=== PATIENT | male | born 1980 | race Caucasian/White ===

== ENCOUNTER 2017-05-11 11:50 | Emergency (ER) | payer MEDICAID, SELFPAY ==
[2017-05-11 11:50] VITALS: BP 159/92; PULSE 76; RESP 14; TEMP 36.7; O2SAT 97; BMI 43.0
--- NOTE | 2017-05-11 12:12 | ED.DCSUM_ITS ---
- ER Visit Summary Date of Service: 05/11/17 Chief Complaint: Dental pain History of Present Illness: The patient is a 36 M who does not have a primary care physician or dentist. He reports that he has pain in his left mandibular first premolar that began 2-3 weeks ago. His sharp pain is 9 out of 10 at worst and 6 of 10 currently. Is worsened by eating. Is taken Tylenol and ibuprofen with significant relief. He has facial swelling that began today. He denies any constitutional symptoms. No fever, chills, nausea, or vomiting. Physical Examination: Vitals: Stable. Afebrile. Mouth: No trismus. No edema of the floor of the mouth. The left maxillary first premolar is eroded to the gumline. There is no focal abscess. He does have soft tissue swelling to the left maxillary region of his face. General: A&O x 3. NAD. Cardiovascular exam: Regular rate and rhythm, no murmur, rub or gallop. Respiratory exam: Clear to auscultation bilaterally. No wheezes or stridor. Abdominal exam: Soft, nontender, nondistended, normal bowel sounds. No peritoneal signs. Extremity: No clubbing, cyanosis, or edema. Emergency Department Course and Treatment: An OAR[facility] report was obtained and was negative. He was treated with naproxen and penicillin p.o. Treatment Plan: Patient will be discharged instructions to follow-up with the dentist as soon as possible. Return to the emergency department for any worsening symptoms. Disposition: To home in improved and stable condition. Impression: 1. Dental abscess. This note was generated with siOPTICA dictation software. It may contain incorrect words, spelling, and punctuation that were not noted in review of the chart prior to signing ED Disposition - Plan for ED Patient: Disposition: Home or Assisted Living Chief Complaint: Dental Instructions: Dental Abscess Prescriptions: Naproxen [Naprosyn] 500 mg PO BID PRN #20 tablet Penicillin V Potassium 500 mg PO 4X/DAY #40 tablet Referrals: Dentist,Your [STAFF PHYSICIAN] - As soon as possible
[2017-05-11] MEDS: Naproxen 250 MG Tablet 500 MG PO (12:37)
[2017-05-11] MEDS: Penicillin Vk 250 MG Tablet 500 MG PO (12:38)
== END 2017-05-11 12:38 | disposition home or self-care (01) ==
LOC: ED 12:24
PROVIDERS: Emergency Provider Emergency Medicine
DX: K04.7 Periapical abscess without sinus (principal); F17.200 Nicotine dependence, unspecified, uncomplicated
CPT/HCPCS: 99283

== ENCOUNTER 2017-09-14 08:50 | Emergency (ER) | payer OTHER, MEDICAID, SELFPAY ==
[2017-09-14 08:52] VITALS: BP 167/85; PULSE 69; RESP 16; TEMP 36.5; O2SAT 97; BMI 43.3
--- NOTE | 2017-09-14 09:03 | ED.VISSUMM ---
- ER Visit Summary Date of Service: 09/14/17 Chief Complaint: Dental pain History of Present Illness: The patient is a 36 M with right-sided dental and gum pain for the past 1 week. He scheduled to see a dentist in 2 weeks. He states he had some leftover penicillin at home he has been taking. He is taken 6 tabs without any improvement. Physical Examination: Vital signs significant for blood pressure 167/85, otherwise unremarkable. Head and neck examination reveals no facial edema or erythema. Intraoral exam reveals right maxillary first premolar to be tender to palpation with some mild surrounding gum edema. There is no trismus and uvula is midline. He is speaking in full sentences and has a strong voice. TMs are clear bilaterally. Heart is regular rate and rhythm without murmur. Test Results: [] Emergency Department Course and Treatment: Patient was switched to clindamycin and given a prescription for naproxen. He is to follow-up with his dentist in 2 weeks. Treatment Plan: [] Disposition: Discharge Impression: Odontalgia This note was generated with iProcure dictation software. It may contain incorrect words, spelling, and punctuation that were not noted in review of the chart prior to signing ED Disposition - Plan for ED Patient: Chief Complaint: Dental Referrals: Care Physician,No Primary [Primary Care Provider] -
--- NOTE | 2017-09-14 09:10 | ED.DEP ---
ED Disposition - Plan for ED Patient: Disposition: Home or Assisted Living Chief Complaint: Dental Instructions: ED Tooth Pain Prescriptions: Naproxen [Naprosyn] 500 mg PO BID PRN #20 tablet Clindamycin [Cleocin] 300 mg PO 4X/DAY #80 capsule
== END 2017-09-14 09:24 | disposition home or self-care (01) ==
LOC: ED 09:20
PROVIDERS: Emergency Provider Emergency Medicine
DX: K08.89 Other specified disorders of teeth and supporting structures (principal); Z72.0 Tobacco use
CPT/HCPCS: 99282

== ENCOUNTER 2017-10-02 10:49 | Emergency (ER) | payer OTHER, MEDICAID, SELFPAY ==
[2017-10-02 10:50] VITALS: BP 133/80; PULSE 72; RESP 16; TEMP 37; O2SAT 98; BMI 42.5
--- NOTE | 2017-10-02 11:07 | ED.DCSUM_ITS ---
- ER Visit Summary Date of Service: 10/02/17 Chief Complaint: Dental pain History of Present Illness: The patient is a 36 M presents to the emergency department dental pain. Patient's been having symptoms for the past week. He states that he has been having them off and on for the past few months. He was actually seen here at the beginning of the month and placed on clindamycin. He states that his pain resolved, but his follow-up appointment was rescheduled until January due to insurance reasons. He states since being off the antibiotics, the pain is come back. He describes a dull ache in his lower jaw. He denies any fevers or chills. He denies any trouble speaking or swallowing. He has been taking Tylenol with little relief. Physical Examination: Exam is relatively unremarkable. There is mild tenderness to palpation over tooth 30. There is no focal abscess. Submental space is soft. No trismus or stridor. No Kenneth angina. Neck is supple. Test Results: [] Emergency Department Course and Treatment: The patient has no evidence of Kenneth angina. His recurrent dental pain after finishing antibiotics. I do feel that he likely has recurrent periapical abscess. There is no evidence of dangerous process. The patient will be resumed on his antibiotics. He will be given new outpatient dental resources. He will be discharged home. Treatment Plan: [] Disposition: Discharge Impression: Dental pain This note was generated with EMKinetics dictation software. It may contain incorrect words, spelling, and punctuation that were not noted in review of the chart prior to signing ED Disposition - Plan for ED Patient: Chief Complaint: Dental Instructions: ED Tooth Pain Prescriptions: Naproxen [Naprosyn] 500 mg PO BID PRN #20 tab Clindamycin [Cleocin] 300 mg PO 4X/DAY #80 cap Referrals: Care Physician,No Primary [Primary Care Provider] -
[2017-10-02 11:30] VITALS: PULSE 98; RESP 16; O2SAT 98
== END 2017-10-02 11:50 | disposition home or self-care (01) ==
LOC: ED 11:22
PROVIDERS: Emergency Provider Emergency Medicine
DX: K04.7 Periapical abscess without sinus (principal); K08.89 Other specified disorders of teeth and supporting structures; Z72.0 Tobacco use
CPT/HCPCS: 99282; A4216

== ENCOUNTER 2018-01-09 00:03 | Emergency (ER) | payer OTHER, SELFPAY ==
[2018-01-09 00:06] VITALS: BP 163/88; PULSE 72; RESP 18; TEMP 36.6; O2SAT 97; BMI 44.4
--- NOTE | 2018-01-09 01:01 | ED.DEP ---
ED Disposition - Plan for ED Patient: Chief Complaint: Ear Problem Instructions: ED Otitis Media Acute Adult Prescriptions: Naproxen [Naprosyn] 500 mg PO BID PRN #20 tablet Amoxicillin 500 mg PO TID #30 tablet Referrals: Deepak Marc MD [STAFF PHYSICIAN] -
--- NOTE | 2018-01-09 01:03 | ED.VISSUMM ---
- ER Visit Summary Date of Service: 01/09/18 Chief Complaint: Left ear pain History of Present Illness: The patient is a 37 M presenting with left ear pain. Patient states it started yesterday. He denies trauma. He has not taken any medications at home. Denies fever. Denies sore throat, rhinorrhea, or other complaints. Physical Examination: Vitals are stable. Patient is afebrile. Alert no acute distress. HEENT exam right TM normal, left TM erythema and dullness. Pharynx is normal. No mastoid tenderness. Neck is supple. No meningismus. Lungs are clear and equal bilaterally. Heart is regular rate and rhythm. Extremities are unremarkable. Skin is warm and dry. No rash Remainder of exam is unremarkable. Emergency Department Course and Treatment: Patient is given amoxicillin, Naprosyn. He is advised to follow-up with Dr. Marc concrete pipe maker for no doc. Advised return to ED if worsening complaints. Disposition: Discharge home Impression: Left otitis media This note was generated with Evalve dictation software. It may contain incorrect words, spelling, and punctuation that were not noted in review of the chart prior to signing ED Disposition - Plan for ED Patient: Chief Complaint: Ear Problem Instructions: ED Otitis Media Acute Adult Prescriptions: Naproxen [Naprosyn] 500 mg PO BID PRN #20 tablet Amoxicillin 500 mg PO TID #30 tablet Referrals: Deepak Marc MD [STAFF PHYSICIAN] -
--- NOTE | 2018-01-09 01:07 | ED.DCSUM_ITS ---
- ER Visit Summary Date of Service: 01/09/18 Chief Complaint: Left ear pain History of Present Illness: The patient is a 37 M presenting with left ear pain. Patient states it started yesterday. He denies trauma. He has not taken any medications at home. Denies fever. Denies sore throat, rhinorrhea, or other complaints. Physical Examination: Vitals are stable. Patient is afebrile. Alert no acute distress. HEENT exam right TM normal, left TM erythema and dullness. Pharynx is normal. No mastoid tenderness. Neck is supple. No meningismus. Lungs are clear and equal bilaterally. Heart is regular rate and rhythm. Extremities are unremarkable. Skin is warm and dry. No rash Remainder of exam is unremarkable. Emergency Department Course and Treatment: Patient is given amoxicillin, Naprosyn. He is advised to follow-up with Dr. Marc marketing production coordinator for no doc. Advised return to ED if worsening complaints. Disposition: Discharge home Impression: Left otitis media This note was generated with Odysii dictation software. It may contain incorrect words, spelling, and punctuation that were not noted in review of the chart prior to signing ED Disposition - Plan for ED Patient: Chief Complaint: Ear Problem Instructions: ED Otitis Media Acute Adult Prescriptions: Naproxen [Naprosyn] 500 mg PO BID PRN #20 tablet Amoxicillin 500 mg PO TID #30 tablet Referrals: Deepak Marc MD [STAFF PHYSICIAN] -
[2018-01-09] MEDS: Naproxen 500 MG Tablet PO (01:30)
[2018-01-09] MEDS: AMOXICILLIN 500 MG CAPSULE PO (01:30)
== END 2018-01-09 01:32 | disposition home or self-care (01) ==
PROVIDERS: Emergency Provider Emergency Medicine
DX: H66.92 Otitis media, unspecified, left ear (principal); Z72.0 Tobacco use
CPT/HCPCS: 99283

== ENCOUNTER 2018-02-05 23:41 | Emergency (ER) | payer OTHER, SELFPAY ==
[2018-02-05 23:42] VITALS: BP 164/95; PULSE 67; RESP 16; TEMP 36.5; O2SAT 96; BMI 45.6
--- NOTE | 2018-02-05 23:53 | ED.VISSUMM ---
- ER Visit Summary Date of Service: 02/05/18 Chief Complaint: Left lower molar pain History of Present Illness: The patient is a 37 M who presents with left lower molar pains are 2 days ago. He denies difficulty opening close his mouth. Denies change in voice or difficulty swallowing. He denies fever, chills night sweats. He denies a traumatic fever, murmur, SBE, IV drug use or being immune suppressed. He does not have a dentist. Physical Examination: Vital signs are marked for an elevated blood pressure 154/95. There is evidence of dental caries involving the first left lower molar and the third left lower molar. There is swelling of the gum in the proximity of the left third lower molar and there appears to be drainage from the pulp. There is tender submandibular nodes noted. Trachea is midline. There is no stridor. There is no evidence of Kenneth's angina. Heart is regular without murmur, gallop or rub. S1 and S2 are normal. Lungs are clear to auscultation with good movement of air bilaterally. Test Results: Not applicable Emergency Department Course and Treatment: 300 mg of clindamycin and 500 mg of Naprosyn. Since he drove to the emergency room he was given a home pack of opiate analgesia. Treatment Plan: Antibiotics and oral analgesia Disposition: Referral to dentist Impression: 1. Periapical abscess left lower third molar 2. Cavity left first molar involving the [place] This note was generated with World Blender dictation software. It may contain incorrect words, spelling, and punctuation that were not noted in review of the chart prior to signing ED Disposition - Plan for ED Patient: Disposition: Home or Assisted Living Chief Complaint: Dental Instructions: Dental Abscess, ED Cavity Dental Prescriptions: Hydrocodone Bitart/Apap 5-325 [[place] 5MG-325MG] 1 tab PO Q6H PRN PRN 3 Days #10 tab PRN Reason: Pain Naproxen [Naprosyn] 500 mg PO BID #14 tab Clindamycin HCl [Cleocin] 300 mg PO Q6H #40 cap Referrals: Arianne Brown [NON-STAFF] - 3-5 Days
--- NOTE | 2018-02-05 23:57 | ED.DCSUM_ITS ---
- ER Visit Summary Date of Service: 02/05/18 Chief Complaint: Left lower molar pain History of Present Illness: The patient is a 37 M who presents with left lower molar pains are 2 days ago. He denies difficulty opening close his mouth. Denies change in voice or difficulty swallowing. He denies fever, chills night sweats. He denies a traumatic fever, murmur, SBE, IV drug use or being immune suppressed. He does not have a dentist. Physical Examination: Vital signs are marked for an elevated blood pressure 154/95. There is evidence of dental caries involving the first left lower molar and the third left lower molar. There is swelling of the gum in the proximity of the left third lower molar and there appears to be drainage from the pulp. There is tender submandibular nodes noted. Trachea is midline. There is no stridor. There is no evidence of Kenneth's angina. Heart is regular without murmur, gallop or rub. S1 and S2 are normal. Lungs are clear to auscultation with good movement of air bilaterally. Test Results: Not applicable Emergency Department Course and Treatment: 300 mg of clindamycin and 500 mg of Naprosyn. Since he drove to the emergency room he was given a home pack of opiate analgesia. Treatment Plan: Antibiotics and oral analgesia Disposition: Referral to dentist Impression: 1. Periapical abscess left lower third molar 2. Cavity left first molar involving the [place] This note was generated with Intellicyt dictation software. It may contain incorrect words, spelling, and punctuation that were not noted in review of the chart prior to signing ED Disposition - Plan for ED Patient: Disposition: Home or Assisted Living Chief Complaint: Dental Instructions: Dental Abscess, ED Cavity Dental Prescriptions: Hydrocodone Bitart/Apap 5-325 [[place] 5MG-325MG] 1 tab PO Q6H PRN PRN 3 Days #10 tab PRN Reason: Pain Naproxen [Naprosyn] 500 mg PO BID #14 tab Clindamycin HCl [Cleocin] 300 mg PO Q6H #40 cap Referrals: Arianne Brown [NON-STAFF] - 3-5 Days
[2018-02-06] MEDS: HYDROcodone Bitartrate/Apap 5/325 Tablet PO (00:05)
[2018-02-06] MEDS: Naproxen 250 MG Tablet 500 MG PO (00:06)
[2018-02-06] MEDS: Clindamycin HCl 150 MG Capsule 300 MG PO (00:06)
== END 2018-02-06 00:09 | disposition home or self-care (01) ==
PROVIDERS: Emergency Provider Emergency Medicine
DX: K04.7 Periapical abscess without sinus (principal); K02.9 Dental caries, unspecified; E66.9 Obesity, unspecified; Z72.0 Tobacco use
CPT/HCPCS: 99283

== ENCOUNTER 2018-04-21 14:49 | Emergency (ER) | payer OTHER, SELFPAY ==
[2018-04-21 14:50] VITALS: BP 156/77; PULSE 72; RESP 16; TEMP 36.7; O2SAT 97; BMI 45.3
--- NOTE | 2018-04-21 15:39 | ED.VISSUMM ---
- ER Visit Summary Date of Service: 04/21/18 Chief Complaint: Abscess History of Present Illness: The patient is a 37 M who is noted a small lump to the right side of his face for some time. Last week it enlarged in size and became red. She was seen in urgent care and was started on doxycycline on April 17. He has not noted any improvement. Physical Examination: Vital signs significant for blood pressure of 156/77, otherwise unremarkable. Patient sitting upright in bed no acute distress. Head neck examination was a 1 cm diameter sebaceous cyst in the right maxilla just lateral inferior to the right eye. There is no overlying cellulitis. Remainder of exam is unremarkable. Test Results: [] Emergency Department Course and Treatment: Patient was verbally consented for I&D. 1/2 cc 1% lidocaine was infused locally. A small kedar was made with a #11 blade. There is return of sebaceous material. Wound is cleansed and dressing is applied. He will continue his antibiotic course. Treatment Plan: [] Disposition: Discharge Impression: Sebaceous cyst status post I&D This note was generated with Crowdcube dictation software. It may contain incorrect words, spelling, and punctuation that were not noted in review of the chart prior to signing ED Disposition - Plan for ED Patient: Referrals: Care Physician,No Primary [Primary Care Provider] -
--- NOTE | 2018-04-21 15:40 | ED.DEP ---
ED Disposition - Plan for ED Patient: Disposition: Home or Assisted Living Instructions: ED Cyst Sebaceous Infec IandD Referrals: Care Physician,No Primary [Primary Care Provider] -
== END 2018-04-21 16:08 | disposition home or self-care (01) ==
PROVIDERS: Emergency Provider Emergency Medicine
DX: L72.3 Sebaceous cyst (principal); Z72.0 Tobacco use
CPT/HCPCS: 10060; 99282

== ENCOUNTER 2018-07-19 19:58 | Emergency (ER) | payer OTHER, SELFPAY ==
[2018-07-19 19:59] VITALS: BP 160/73; PULSE 73; RESP 15; TEMP 36.7; BMI 45.3
--- NOTE | 2018-07-19 20:25 | ED.VISSUMM ---
- ER Visit Summary Date of Service: 07/19/18 Chief Complaint: [Right-sided facial swelling] History of Present Illness: The patient is a 37 M [presents to the emergency department with swelling to the right side of his face that he noted today. Patient states that he has had an abscess the exact same area that he had incised and drained more than a year ago. Patient states that he is trying to follow-up with the surgeon to have it taken care of. He denies any fevers. He denies any trauma to the area.] Physical Examination: HEENT-PERRLA, EOMI. Cranial nerves II through XII grossly intact. TMs clear. Mucous membranes moist. No adenopathy. Right face-over the upper cheekbone patient has a soft tissue swelling measures approximately 2.5 cm in diameter with a fluctuant center. Patient erythema noted. Cardiovascular-regular rate and rhythm without murmur or ectopy Lungs-clear to auscultation, chest wall stable without crepitus or subcu emphysema Abdomen-normoactive bowel sounds, soft, nontender, no rebound or rigidity, no peritoneal signs. Extremities-intact ?4, normal range of motion, normal pulses, atraumatic [] Test Results: [None indicated] Emergency Department Course and Treatment: [Incision and drainage of suspected abscess-area sterilely draped and prepped. Cleansed with Shur-Clens. Anesthetized locally with 1% lidocaine total 2 cc. Using an 11 blade a 1 cm incision was made and large amount of free-flowing purulent debris was expressed. Wound irrigated. Clean dressing applied. Patient was given Keflex 500 mg p.o.] Treatment Plan: [Patient advised to follow-up with primary care physician for wound check in 3 to 5 days. Patient will be started on Keflex.] Disposition: [Discharged home in stable condition] Impression: [Facial abscess with incision and drainage] This note was generated with Jack in the Box dictation software. It may contain incorrect words, spelling, and punctuation that were not noted in review of the chart prior to signing ED Disposition - Plan for ED Patient: Referrals: Care Physician,No Primary [Primary Care Provider] -
--- NOTE | 2018-07-19 20:28 | ED.DEP ---
ED Disposition - Plan for ED Patient: Instructions: ED Abscess IandD Prescriptions: Cephalexin [Keflex] 500 mg PO Q6 #40 cap Referrals: Care Physician,No Primary [Primary Care Provider] - 3-5 Days
[2018-07-19 20:45] VITALS: RESP 16
[2018-07-19] MEDS: Cephalexin 250 MG Capsule 500 MG PO (20:48)
== END 2018-07-19 20:48 | disposition home or self-care (01) ==
LOC: ED 20:33
PROVIDERS: Emergency Provider Emergency Medicine
DX: L02.01 Cutaneous abscess of face (principal); Z72.0 Tobacco use
CPT/HCPCS: 10060; 99283

== ENCOUNTER 2019-01-11 05:27 | Emergency (ER) | payer OTHER, SELFPAY ==
[2019-01-11 05:27] VITALS: BP 192/103; PULSE 74; RESP 17; TEMP 36.5; O2SAT 94; BMI 45.6
--- NOTE | 2019-01-11 05:36 | ED.VIS.GEN ---
History of Present Illness Chief Complaint: Abscess Narrative: Patient is a 38-year-old male who presents with an abscess on the right side of his neck. He initially noticed some redness and swelling in the area 2 days ago. He reports that this morning when he woke up it was doubled in size. He had planned on seeing his primary care physician for antibiotic treatment but when he noticed that it was significantly larger presented here. He has had prior abscesses requiring drainage he is not diabetic. Denies any systemic illness such as fevers vomiting diarrhea. He has no other complaints at this time. Past Medical History - Allergies and Home Meds Allergies/Adverse Reactions: Allergies varenicline tartrate [From Chantix] Adverse Reaction (Verified 01/11/19 05:30) Other Primary Care Physician: Care Physician,No Primary [Primary Care Provider] - Past Medical History: None Smoking Status: Current every day smoker Review of Systems All systems negative except as indicated General: Denies: Fever Cardiovascular: Denies: Chest pain Respiratory: Denies: Dyspnea Physical Exam Vital Signs/Narrative: Vital Signs Temp Pulse Resp BP Pulse Ox 01/11/19 05:27 97.7 F L 74 17 192/103 H 94 Inital Vital Signs reviewed: Yes General: Well nourished Head: Normocephalic Eyes: EOMI ENT: Moist mucous membranes Neck: Supple Cardiovascular: Regular rate Respiratory: No distress Skin: - - Well-circumscribed cystic structure on the right posterior neck without surrounding cellulitis Neurological: Alert Psychological: Normal affect Diagnostic/Tx/Re-eval - Medical Decision Making The cyst was anesthetized with 2.5 cc of 1% lidocaine. Diameter of the cyst measures about 1 cm. A linear incision was made with a #15 blade and sebaceous material was expressed. Patient does not have any surrounding cellulitis. Not believe antibiotics are warranted. Patient advised to follow-up as an outpatient was discharged home. ED Disposition - Plan for ED Patient: Disposition: Home or Assisted Living Diagnosis: Sebaceous cyst Instructions: ABSCESS, Incision and Drainage Referrals: Care Physician,No Primary [Primary Care Provider] -
[2019-01-11 06:12] VITALS: BP 155/98; PULSE 69; RESP 17; O2SAT 98
== END 2019-01-11 06:14 | disposition home or self-care (01) ==
PROVIDERS: Emergency Provider Emergency Medicine
DX: L72.3 Sebaceous cyst (principal); F17.200 Nicotine dependence, unspecified, uncomplicated
CPT/HCPCS: 10060; 99282

== ENCOUNTER 2019-12-10 22:46 | Emergency (ER) | payer SELFPAY ==
[2019-12-10 22:47] VITALS: BP 166/90; PULSE 91; RESP 18; TEMP 36.2; O2SAT 92; BMI 50.3
--- NOTE | 2019-12-10 22:54 | ED.DCSUM_ITS ---
History of Present Illness Chief Complaint: Abscess Detail of Chief Complaint: tender swollen area Informant: Patient Onset: Days - 2 Context: Gradual Onset Timing: Continuous Quality: sore, swollen Location: posterior scalp Current Severity: Moderate Maximum Severity: Moderate Worsened by: palpation/touching Relieved by: nothing Associated Symptoms: no systemic sx Narrative: Patient has a tender swollen area on the posterior scalp. States he made an appointment with his doctor at the [facility] for antibiotics since he has had these before and knows they typically respond to that, however it is gotten too big and his appointment is not until next week. He denies any fevers or systemic symptoms. States he has had abscesses like these before, not in this exact location. Past Medical History - Allergies and Home Meds Allergies/Adverse Reactions: Allergies varenicline tartrate [From Chantix] Adverse Reaction (Verified 12/10/19 22:48) Other Primary Care Physician: Care Physician,No Primary [Primary Care Provider] - Past Medical History: None Smoking Status: Current every day smoker Review of Systems General: Denies: Chills, Fever, Sweats Musculoskeletal: Denies: Swelling, Extremity Pain Skin: Reports: Abscess. Denies: Rash Neurological: Denies: Headache, Weakness, Numbness Physical Exam Vital Signs/Narrative: Vital Signs Temp Pulse Resp BP Pulse Ox 12/10/19 22:47 97.1 F L 91 18 166/90 H 92 General: Well nourished, Well developed, Obese, No Acute Distress Head: Normocephalic, Atraumatic, Tenderness - 3 cm in diameter pointing abscess posterior scalp within the hair, which is very short. Central pustule, no spontaneous discharge. Neck: Supple, Nontender Skin: Normal color, No rash, - - 3 cm cutaneous abscess to the posterior scalp. See above. Neurological: Alert, Oriented x3, Cranial nerves II-XII grossly intact, Normal Strength, Normal Sensation Psychological: Normal affect, Normal Mood Diagnostic/Tx/Re-eval - Medical Decision Making Patient was amenable to incision and drainage at the bedside. This was done to see the procedure note. Patient tolerated well no complications. Placed on Bactrim given first dose here, advised to follow-up or return if worse. Procedures Procedure(s): Simple abscess incision and drainage: Prepped with chlorhexidine, locally anesthetized with 4 cc of plain 1% lidocaine, and incised centrally with a #11 blade. Small amount of purulent material was expressed along with a necrotic plug. I deloculated the abscess cavity, irrigated with saline, and dressed with bacitracin. ED Disposition - Plan for ED Patient: Disposition: Home or Assisted Living Diagnosis: Cutaneous abscess of head excluding face Instructions: ED Abscess Incision And Drainage Prescriptions: Sulfamethoxazole/Trimethoprim [Bactrim Ds Tablet] 1 ea PO BID #20 tab Prescription Printed Referrals: Doctor,Your [STAFF PHYSICIAN] - As Needed
[2019-12-10] MEDS: Smz/Tmp Ds Tablet 1 TABLET PO (23:26)
== END 2019-12-10 23:31 | disposition home or self-care (01) ==
LOC: ED 23:24
PROVIDERS: Emergency Provider Emergency Medicine
DX: L02.811 Cutaneous abscess of head [any part, except face] (principal); F17.200 Nicotine dependence, unspecified, uncomplicated
CPT/HCPCS: 10060; 99283

== ENCOUNTER 2021-09-25 14:08 | Emergency (ER) | payer OTHER, SELFPAY ==
[2021-09-25 14:09] VITALS: BP 137/90; PULSE 75; RESP 16; TEMP 36.3; O2SAT 98; BMI 51.7
--- NOTE | 2021-09-25 14:55 | EDS_ITS ---
HPI History of Present Illness Chief Complaint: Abscess Narrative Narrative: Patient who denies significant past medical history presents with abscess on his left cheek that has been present for 3 to 4 weeks. He states that there was a bump on his left cheek that has been present but hidden under his facial hair. He shaved, and noticed that the big bump started draining purulent material along with blood. He denies any fevers or chills. No redness. He states that continues to be mildly sore and has drainage on occasion. He noticed other bumps on the back of his neck where he would shave, and on the back of his head but states he started using a razor and those cleared up. He denies any fevers or chills. No nausea or vomiting. No other symptoms. PFSH [facility] Medical History Smoker Home Medications sulfamethoxazole 800 mg-trimethoprim 160 mg tablet 1 ea PO BID #20 tabs 12/10/19 [Rx Last Taken Unknown] sulfamethoxazole 800 mg-trimethoprim 160 mg tablet (Bactrim DS) 1 tab PO BID #20 tabs 09/25/21 [Rx Last Taken Unknown] Allergy/AdvReac Type Severity Reaction Status Date / Time varenicline tartrate AdvReac Other Verified 12/10/19 22:48 [From Chantix] Social History Smoking Status: Current every day smoker tobacco type: cigarettes ROS ROS ED ROS Narrative Constitutional: No fever, no chills. HEENT: No sore throat. No neck pain. No loss of vision. No rhinorrhea. Positive abscess/hard lump on left cheek draining purulent material and occasionally blood. Cardiovascular: No chest pain. No palpitations. No pedal edema. Respiratory: No cough, no shortness of breath. Abdominal: No abdominal pain. No nausea. No vomiting. Genitourinary: No dysuria. No hematuria. Musculoskeletal: No myalgias. No arthralgias. Neurologic: No headaches. No dizziness. No lightheadedness. Skin: No rash. No change in color. Psychiatric: No depression. No anxiety. EXAM Physical Exam Narrative Exam Narrative: Afebrile. Vital signs noted. HEENT: Normocephalic. Atraumatic. PERRL, EOMI. Neck soft and supple. No point tenderness or step off. Left cheek with approximately 0.7 to 1 cm area of induration, no erythema, no noted fluctuance. Cardiovascular: Regular rate and rhythm. No murmurs, rubs, or gallops appreciated. Respiratory: No tachypnea. Lungs clear to auscultation bilaterally. Gastrointestinal: Abdomen soft, nontender, with normoactive bowel sounds. No rebound or guarding. Neurological: Awake. Alert. Nonfocal, nonlateralizing. Skin: No rash. Normal color. No pallor. Musculoskeletal: No pedal edema. Full range of motion extremities. Const Vital Signs: 09/25/21 14:09 Temperature 97.3 F L Temperature Source Temporal Pulse Rate 75 Respiratory Rate 16 Blood Pressure 137/90 H Blood Pressure Mean 105 Pulse Ox 98 Oxygen Delivery Method Room Air MDM MDM MDM Narrative Medical decision making narrative: 8 pointI do not feel that this is amenable to incision and drainage currently. It has been present for 3 to 4 weeks. He was told to apply warm compresses. I will write him a prescription for Bactrim DS today for the next 10 days which she has done for previous abscesses on his face. He was referred to a primary care provider. Return instructions to the emergency department were reviewed. Disposition is discharged home in stable condition. Discharge Plan Triage Chief Complaint: Abscess ED Provider: Hao Rome Dx/Rx/DC Orders Clinical Impression: Abscess of face, Folliculitis barbae Instructions: ED Abscess Antibiotic Treatment Only Prescriptions: New sulfamethoxazole-trimethoprim [Bactrim DS] 800-160 mg tablet 1 tab PO BID Qty: 20 0RF No Action sulfamethoxazole-trimethoprim 1 EACH tablet 1 ea PO BID Qty: 20 0RF Primary Care Provider: Care Physician,No Primary Referrals: Jerry Infante MD [STAFF PHYSICIAN] - 3-5 Days if not improving Care Physician,No Primary [Primary Care Provider] - Disposition Disposition: Home, Self Care
== END 2021-09-25 15:02 | disposition home or self-care (01) ==
PROVIDERS: Emergency Provider Emergency Medicine; Visit Provider Emergency Medicine
DX: L02.01 Cutaneous abscess of face (principal); L73.8 Other specified follicular disorders; F17.210 Nicotine dependence, cigarettes, uncomplicated
CPT/HCPCS: 99282

== ENCOUNTER 2022-01-01 02:13 | Emergency (ER) | payer OTHER, SELFPAY ==
[2022-01-01 02:15] VITALS: BP 170/105; PULSE 94; RESP 18; TEMP 36.8; O2SAT 98; BMI 50.6
--- NOTE | 2022-01-01 02:25 | EDS_ITS ---
HPI History of Present Illness Chief Complaint: Abscess Narrative Narrative: 41-year-old male who denies significant past medical history except for previous abscesses in his right axilla and on his abdomen presents with pain and swelling in his right armpit, along his chest wall. He denies any fevers or chills. No nausea or vomiting. He states his symptoms began 2 days ago Friday, and swelled up yesterday. The area is painful to touch. He states that he has had numerous abscesses lanced before and the last time he was put on 2 antibiotics. He states he was going to come after work yesterday but was unable to so he presents this morning to have the abscess lanced. PFSH [facility] Medical History Smoker Home Medications sulfamethoxazole 800 mg-trimethoprim 160 mg tablet (Bactrim DS) 1 tab PO BID #20 tabs 01/01/22 [Rx Last Taken Unknown] Allergy/AdvReac Type Severity Reaction Status Date / Time varenicline tartrate AdvReac Other Verified 01/01/22 02:14 [From Chantix] Surgical History no surgical history Social History Smoking Status: Current every day smoker tobacco type: cigarettes ROS ROS ED ROS Narrative Constitutional: No fever, no chills. HEENT: No sore throat. No neck pain. No loss of vision. No rhinorrhea. Cardiovascular: No chest pain. No palpitations. No pedal edema. Respiratory: No cough, no shortness of breath. Abdominal: No abdominal pain. No nausea. No vomiting. Genitourinary: No dysuria. No hematuria. Musculoskeletal: No myalgias. No arthralgias. Neurologic: No headaches. No dizziness. No lightheadedness. Skin: No rash. Positive abscess near her right axilla on right chest wall under her arm. Swollen, reddened, painful to touch. Psychiatric: No depression. No anxiety. EXAM Physical Exam Narrative Exam Narrative: Afebrile. Vital signs noted. Nontoxic-appearing. HEENT: Normocephalic. Atraumatic. PERRL, EOMI. Neck soft and supple. No point tenderness or step off. Cardiovascular: Regular rate and rhythm. No murmurs, rubs, or gallops appreciated. Respiratory: No tachypnea. Lungs clear to auscultation bilaterally. Gastrointestinal: Abdomen soft, obese, nontender, with normoactive bowel sounds. No rebound or guarding. Neurological: Awake. Alert. Nonfocal, nonlateralizing. Skin: No rash. Normal color with exception of fluctuant abscess and reddened area on right chest wall under arm near axilla. No pallor. Multiple scars noted in axilla and some on chest wall. Somewhat consistent with hidradenitis suppurativa. Musculoskeletal: No pedal edema. Full range of motion extremities. Const Vital Signs: 01/01/22 02:15 Temperature 98.2 F Temperature Source Temporal Pulse Rate 94 Respiratory Rate 18 Blood Pressure 170/105 H Blood Pressure Mean 126 Pulse Ox 98 Oxygen Delivery Method Room Air MDM MDM MDM Narrative Medical decision making narrative: Given the fluctuant nature of this area, incision and drainage will be performed. He was given 1 dose of Bactrim here in the emergency department. I do feel that this was more hidradenitis suppurativa than it was MRSA that would require double antibiotics. I do feel that the best coverage would be Bactrim. 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 See procedure note for details. He will take [id number] analgesics. Return instructions to the emergency department were reviewed. Disposition is discharged home in stable condition. Procedures Other Procedures Procedure(s): Incision and drainage of right axillary abscesses: Patient was informed of the risk of continued infection and scarring, along with bleeding and acknowledges an understanding. He signed a consent form. Povidone iodine was used as prep of the area. 2 cruciate incisions made with a #11 blade on the right axillary abscess with serosanguineous to purulent drainage. Area was deloculated and irrigated with normal saline. The more medial incision was packed with quarter inch iodoform gauze with 2 tails. Attempt was made at packing the other incision, but it was not deep enough to hold. Patient tolerated the procedure well. Discharge Plan Triage Chief Complaint: Abscess ED Provider: Hao Rome Dx/Rx/DC Orders Clinical Impression: Abscess of axilla, right, Hidradenitis suppurativa of right axilla Instructions: ED Abscess Incision And Drainage Prescriptions: New sulfamethoxazole-trimethoprim [Bactrim DS] 800-160 mg tablet 1 tab PO BID Qty: 20 0RF Primary Care Provider: Care Physician,No Primary Referrals: Misha Tariq MD [Med Staff - Active Staff] - As Needed Care Physician,No Primary [Primary Care Provider] - Disposition Disposition: Home, Self Care
[2022-01-01] MEDS: Smz/Tmp Ds Tablet 1 TABLET PO (03:23)
[2022-01-01] MEDS: Lidocaine 1% (20 ml mdv) 20 ML Vial INFILT (03:23)
== END 2022-01-01 03:49 | disposition home or self-care (01) ==
PROVIDERS: Emergency Provider Emergency Medicine; Visit Provider Emergency Medicine
DX: L73.2 Hidradenitis suppurativa (principal); L02.411 Cutaneous abscess of right axilla; F17.210 Nicotine dependence, cigarettes, uncomplicated
CPT/HCPCS: 10060; 99283

== ENCOUNTER 2023-03-07 10:37 | Emergency (ER) | payer OTHER, SELFPAY ==
[2023-03-07 10:38] VITALS: BP 192/99; PULSE 85; RESP 12; TEMP 36.6; O2SAT 93; BMI 50.9
--- NOTE | 2023-03-07 10:53 | CT_ITS ---
STUDY: CT BRAIN WITHOUT CONTRAST REASON FOR EXAM: Male, 42 years old. Trauma RADIATION DOSAGE (If Supplied By Facility): CTDIvol = ( 44.99 ) mGy, DLP = ( 863.60 ) mGycm TECHNIQUE: Transaxial CT imaging of the brain was performed without administration of intravenous contrast material. Individualized dose optimization techniques were used for this CT. COMPARISON: No relevant priors. FINDINGS: Large scalp hematoma overlying the posterior right parietal occipital bones. Normal calvarium. Normal size ventricles and extra-axial spaces for the patient''s age. Normal white matter tracts of the cerebral hemispheres. Normal basal ganglia and thalami. Normal brainstem. Normal cerebellum. There is no intracranial hemorrhage. There are no findings of an acute ischemic infarction. Mucosal thickening at the base of the maxillary sinuses bilaterally. CT/Brain/Head without Contrast IMPRESSION: Large scalp hematoma overlying the right posterior parietal occipital bones. Electronically Signed: Loco Roblero MD at 12:12 EST ,
--- NOTE | 2023-03-07 10:53 | CT_ITS ---
STUDY: CT CERVICAL SPINE WITHOUT CONTRAST REASON FOR EXAM: Male, 42 years old. trauma RADIATION DOSAGE (If Supplied By Facility): CTDIvol = ( 37.92 ) mGy, DLP = ( 930.45 ) mGycm TECHNIQUE: High resolution transaxial imaging was performed without contrast material. Sagittal and coronal images were reconstructed. Individualized dose optimization techniques were used for this CT. COMPARISON: None FINDINGS: Normal craniovertebral junction. Normal anterior atlantoaxial articulation. Normal odontoid process. There is straightening of the normal cervical lordosis. Normal vertebral bodies and posterior osseous elements. C2-3: Normal endplates. Normal disc height and morphology. Normal central canal and intervertebral neuroforamina. C3-4: Normal endplates. Normal disc height and morphology. Normal central canal and intervertebral neuroforamina. C4-5: Normal endplates. Normal disc height and morphology. Normal central canal and intervertebral neuroforamina. C5-6: Moderate degree of disc space narrowing and anterior spondylosis. C6-7: Normal endplates. Normal disc height and morphology. Normal central canal and intervertebral neuroforamina. C7-T1: Normal endplates. Normal disc height and morphology. Normal central canal and intervertebral neuroforamina. Normal visualized soft tissue structures. CT/Spine Cervical without Contras IMPRESSION: Multilevel degenerative changes, as described above. Electronically Signed: Loco Roblero MD at 12:18 EST ,
--- NOTE | 2023-03-07 10:54 | EDS_ITS ---
HPI History of Present Illness Chief Complaint: Head Injury Informant: patient and EMS Narrative Narrative: 42-year-old male presenting to the emergency room following head injury. Patient arriving by EMS. Was reported that the patient was approximately 6 to 7 feet in the air on a scissor lift. It was an unwitnessed fall per EMS. A bystander did hear some snoring respirations. Patient notes he is very nauseated has a headache and also notes neck and left shoulder pain. Patient denies being on any blood thinners. PFSH PFSH Medical History Smoker Home Medications sulfamethoxazole 800 mg-trimethoprim 160 mg tablet (Bactrim DS) 1 tab PO BID #20 tabs 01/01/22 [Rx Last Taken Unknown] ondansetron 4 mg disintegrating tablet 4 mg PO Q6H PRN PRN Nausea #10 tabs 03/07/23 [Rx Last Taken Unknown] oxycodone-acetaminophen 5 mg-325 mg tablet 1 tab PO Q6H PRN PRN Pain 3 days #12 TABLETS 03/07/23 [Rx Last Taken Unknown] Allergy/AdvReac Type Severity Reaction Status Date / Time varenicline tartrate AdvReac Other Verified 03/07/23 10:43 [From Chantix] Social History Smoking Status: Current every day smoker tobacco type: cigarettes ROS ROS ED Constitutional Constitutional ED: Denies chills, fever(s) or weight loss Eyes Eyes: Reports blurry vision and change in vision; Denies diplopia ENT ENT ED: Denies ear pain, rhinorrhea or sore throat Cardiovascular Cardiovascular: Denies chest pain, orthopnea, palpitations or racing heartbeat Respiratory/Chest Respiratory/Chest: Denies cough, dyspnea or orthopnea Gastrointestinal Gastrointestinal: Denies abdominal pain, diarrhea, nausea or vomiting Genitourinary Genitourinary ED: Denies dysuria, hematuria or urinary frequency Musculoskeletal Musculoskeletal: Reports neck pain and other Details: Left shoulder pain ; Denies arthralgias or myalgias Integumentary Denies abscess or rash Neurologic Neurologic: Reports headache(s); Denies weakness Psychiatric Psychiatric: Denies anxiety, depression, suicidal ideation or suicidal thoughts Endocrine Endocrinology: Denies polydipsia, polyphagia or polyuria Allergic/Immunologic Allergic/Immunologic ED: Denies mouth swelling, tongue swelling or urticaria EXAM Physical Exam Const Vital Signs: 03/07/23 10:38 03/07/23 10:47 03/07/23 12:08 Temperature 97.9 F Temperature Source Temporal Pulse Rate 85 77 Respiratory Rate 12 20 H Respiratory Effort Normal Non-Labored Respiratory Depth Normal Respiratory Pattern Normal Blood Pressure 192/99 H 217/121 H Blood Pressure Mean 130 153 Pulse Ox 93 94 Oxygen Delivery Method Room Air Room Air 03/07/23 13:04 03/07/23 14:18 Temperature Temperature Source Pulse Rate 94 87 Respiratory Rate 18 20 H Respiratory Effort Respiratory Depth Respiratory Pattern Blood Pressure 163/89 H 166/89 H Blood Pressure Mean 113 114 Pulse Ox 95 97 Oxygen Delivery Method Room Air Room Air Positive well nourished, well developed and obese General Appearance ED: well developed and pallor Nutritional Appearance: obese HEENT Reports normocephalic and moist mucous membranes HEENT Narrative: There is a large right occipital-parietal hematoma. Eyes PERRL and EOMs intact bilaterally Neck no lymphadenopathy and no JVD Neck Narrative: Neck is diffusely tender to palpation. Chest Wall inspection of chest normal Resp normal respiratory effort and clear to auscultation bilaterally Cardio regular rate, regular rhythm and no murmurs GI normal to inspection, nondistended, normoactive bowel sounds and non-tender Palpation: soft Back/Spine no CVA tenderness and normal ROM Extremity Extremity Narrative: Left shoulder tender to palpation anteriorly and superiorly. No obvious deformity. Neurovascular intact distal. Moves all extremities x 4 General Extremety ED: Negative for edema General Extremity: Negative for edema Neuro CN's II-XII intact bilaterally Neuro Narrative: GCS 14. 1 point off for eye-opening. He does have some evidence of perseveration. Herbert Coma Scale: document GCS findings To Voice Obeys Commands Oriented 14 Sensorium / Orientation: alert Motor Exam: strength 5/5 throughout Psych mental status grossly normal Mood & Affect: Negative for depressed or tearful Skin no rashes or lesions noted Skin Narrative: Large scalp hematoma General Skin Exam: pallor MDM MDM MDM Narrative Medical decision making narrative: My independent or potation of the plain films of the left shoulder is no acute fracture. CT of the brain demonstrated large scalp hematoma but no intracranial hemorrhage or fracture. CT cervical spine demonstrated no acute fracture. Patient's blood work showed glucose 194. Potassium 3.4. He received Zofran for nausea. He was observed. Patient remains significantly hypertensive. He received a dose of clonidine. Patient was reassessed. He is doing better. His parlor has resolved. Blood pressure has come down. I am going to administer some morphine for continued pain. I believe the patient can be discharged home today. He is going to work on finding a ride. He was advised he has been diagnosed with a concussion and needs to rest. He does not need to work again until next week Friday. I will place him on light duty will need to follow- up with Workmen's Comp. Patient was advised that his blood pressure was significantly elevated today which may be related to his injury. He continues to not have any chest pain palpitations or shortness of breath. He is amnestic to the events. He states the last thing he remembers is coming down on the scissor left after completing his last work task. Patient is able to ambulate here in the department. His GCS now is 15. No further perseveration. History & Record Review Discussion w/independent historian: Patient Lab Data Attestation: I reviewed the patient's lab results. Labs: Laboratory Results - last 24 hr 03/07/23 11:10 WBC 9.5 RBC 5.72 Hgb 15.5 Hct 47.1 MCV 82.3 MCH 27.1 MCHC 32.9 RDW Std Deviation 38.3 RDW Coeff of Pascale 12.9 Plt Count 171 MPV 13.5 H Immature Gran % (Auto) 0.100 Neut % (Auto) 57.5 Lymph % (Auto) 33.8 Bonner % (Auto) 6.2 Eos % (Auto) 1.8 Baso % (Auto) 0.6 Absolute Neuts (auto) 5.5 Absolute Lymphs (auto) 3.22 Nucleated RBC % 0 PT 13.0 INR 1.0 APTT 25.2 Sodium 138 Potassium 3.4 L Chloride 106 Carbon Dioxide 29.0 Anion Gap 3 L BUN 13 Creatinine 0.99 Estim Creat Clear Calc 93.08 Est GFR (MDRD) Af Amer 106 Est GFR (MDRD) Non-Af 88 BUN/Creatinine Ratio 13.1 Glucose 194 H Calcium 9.2 Radiography Diagnostic Testing: Clinical Impression(s) from Imaging Studies Brain CT 03/07/23 10:53 IMPRESSION: Large scalp hematoma overlying the right posterior parietal occipital bones. Electronically Signed: Loco Roblero MD at 12:12 EST , Cervical Spine CT 03/07/23 10:53 IMPRESSION: Multilevel degenerative changes, as described above. Electronically Signed: Loco Roblero MD at 12:18 EST , Shoulder X-Ray 03/07/23 11:20 IMPRESSION: Normal x-ray examination of the shoulder. Electronically Signed: Loco Roblero MD at 12:10 EST , Discharge Plan Triage Chief Complaint: Head Injury ED Provider: Kirill Brar Dx/Rx/DC Orders Clinical Impression: Concussion, Acute pain of left shoulder, Hyperglycemia, Scalp hematoma, Fall, Hypertension, Loss of consciousness Instructions: After a Concussion, Hypertension Dc, ED Hematoma Prescriptions: New oxycodone-acetaminophen [oxycodone-acetaminophen] 5-325 mg tablet 1 tab PO Q6H PRN PRN (Reason: Pain) 3 Days Qty: 12 0RF ondansetron [ondansetron] 4 mg tablet,disintegrating 4 mg PO Q6H PRN PRN (Reason: Nausea) Qty: 10 0RF No Action sulfamethoxazole-trimethoprim [Bactrim DS] 800-160 mg tablet 1 tab PO BID Qty: 20 0RF Primary Care Provider: Care Physician,No Primary Referrals: Care Physician,No Primary [Primary Care Provider] - Clinic,NOW [Non-Staff] - 1 Week Disposition Disposition: Home, Self Care Discharge Date/Time: 03/07/23 15:46
[2023-03-07] MEDS: Ondansetron 4 MG/2 ML Vial IV ×2 (11:12→14:30)
[2023-03-07 11:19] LABS: Absolute Lymphocyte Count 3.22 X10^3/uL (0.83-4.51); Absolute Neutrophil Count 5.5 X10^3/uL (2.0-7.7); Basophil# 0.06 X10^3/uL; Basophil% 0.6 % (0-1); Eosinophil# 0.17 X10^3/uL; Eosinophils% 1.8 % (0-5); Hematocrit 47.1 % (40-54); Hemoglobin 15.5 g/dL (13.0-16.5); Lymphocyte # 3.22 X10^3/ul (0.83-4.51); Lymphocyte % 33.8 % (19-41); Mean Corp Hgb Conc 32.9 g/dL (32-36); Mean Corpuscular Hgb 27.1 pg (27.0-32.0); Mean Corpuscular Volume 82.3 fL (80-94); Mean Platelet Vol. 13.5 fl (6.2-12.0); Monocyte# 0.59 X10^3/uL; Monocyte% 6.2 % (0-10); NRBC Flagged by Analyzer 0 % (0-5); Neutrophil # 5.49 X10^3/uL (2.7-7.7); Neutrophil % 57.5 % (47-70); Platelet Count 171 K/mm3 (150-450); RBC Distribution Width CV 12.9 % (11.6-14.6); RBC Distribution Width SD 38.3 fl (35.1-43.9); Red Blood Count 5.72 M/mm3 (4.6-6.2); White Blood Count 9.5 K/mm3 (4.4-11.0)
--- NOTE | 2023-03-07 11:20 | RAD_ITS ---
STUDY: X-RAY - LEFT SHOULDER REASON FOR EXAM: Male, 42 years old. Shoulder pain following a fall. TECHNIQUE: 2 view(s) of the shoulder. COMPARISON: None. FINDINGS: Normal glenohumeral articulation. Normal acromioclavicular joint. Normal acromion. Normal humeral head and visualized proximal humerus. The soft tissue structures are unremarkable. Normal visualized pulmonary apex. RAD/Shoulder min 2 Views IMPRESSION: Normal x-ray examination of the shoulder. Electronically Signed: Loco Rolbero MD at 12:10 EST ,
[2023-03-07 11:28] LABS: Anion Gap 3 (5-15); BUN 13 mg/dL (7-18); BUN/Creat Ratio 13.1 RATIO (10-20); Calcium,Total 9.2 mg/dL (8.5-10.1); Chloride 106 mmol/L (98-107); Creatinine, Serum 0.99 mg/dL (0.70-1.30); EST Glomerular Filtration Rate 88 mL/min (>60); Est Glom Filt Rate - Afr Amer 106 mL/min (>60); Estimated Creatinine Clearance 93.08 ml/min; Glucose 194 mg/dL (74-106); Potassium 3.4 mmol/L (3.5-5.1); Sodium Level 138 mmol/L (136-145)
[2023-03-07 11:29] LABS: Partial Thromboplast Time 25.2 Seconds (24.1-36.2)
[2023-03-07 12:08] VITALS: BP 217/121; PULSE 77; RESP 20; O2SAT 94
[2023-03-07] MEDS: cloNIDine HCl 0.1 MG Tablet PO (12:30)
--- NOTE | 2023-03-07 12:40 | ED.RN ---
DRUG SCREENER DEVON CAME TO ER TO OBTAIN DRUG SCREEN, BUT STATES UNABLE DUE TO PT LETHARGIC.
--- NOTE | 2023-03-07 12:51 | ED.RN ---
PT'S BOSS CAME TO CHECK ON PT, AND STATES HE SPOKE TO ZULEYKA AND IS AWARE THAT PT DID NOT OBTAIN DRUG SCREEN AT THIS TIME. CHANTELL CORREA- [phone]
[2023-03-07 13:04] VITALS: BP 163/89; PULSE 94; RESP 18; O2SAT 95
[2023-03-07 14:18] VITALS: BP 166/89; PULSE 87; RESP 20; O2SAT 97
[2023-03-07] MEDS: Morphine 4 MG/ML Syringe IV (14:30)
--- NOTE | 2023-03-07 14:57 | ED.RN ---
PT ALERT AND ORIENTED X 3, ZULEYKA CALLED AGAIN FOR DRUG SCREEN. PT ATTEMPTING TO FIND RIDE AT THIS TIME.
== END 2023-03-07 15:46 | disposition home or self-care (01) ==
PROVIDERS: Emergency Provider Emergency Medicine; Visit Provider Emergency Medicine
DX: S06.0X9A Concussion with loss of consciousness of unspecified duration, initial encounter (principal); R40.2412 Glasgow coma scale score 13-15, at arrival to emergency department; I10 Essential (primary) hypertension; R73.9 Hyperglycemia, unspecified; M25.512 Pain in left shoulder; M54.2 Cervicalgia; W17.89XA Other fall from one level to another, initial encounter; Y99.0 Civilian activity done for income or pay; F17.210 Nicotine dependence, cigarettes, uncomplicated
CPT/HCPCS: 70450; 72125; 73030; 80048; 85025; 85610; 85730; 96374; 96375; 96376; 99283; A4216; J2405